=== PATIENT | male | born 1975 | race Hispanic/Latino ===

== ENCOUNTER 2018-01-27 10:14 | Outpatient (CLI) | payer BC ==
--- NOTE | 2018-01-27 14:02 | CT ---
CT OF PARANASAL SINUSES: DATE: 01/27/18. COMPARISON: None. HISTORY: Chronic right-sided ear infections, hearing loss of right, history of cholesteatoma and conductive he aring loss. TECHNIQUE: Serial axial CT imaging obtained at 3 mm intervals through the paranasal sinuses without contrast. C oronal reformatted imaging obtained. FINDINGS: There is polypoid mucosal thickening involving the alveolar recess of the maxillary sinus on the left . The frontal sinuses, sphenoid sinuses, ethmoid air cells, and right maxillary sinus are unremarkab le. The mastoid air cells on the left appear well aerated. The mastoid air cells on the right are h ypoplastic and opacified. There is soft tissue density in the tympanic cavity on the right as well. This is better assessed on dedicated CT of the temporal bones. These findings are consistent with t walter provided history of cholesteatoma. Outflow tract of bilateral maxillary sinuses demonstrates patency. There is a binu bullosa on the right. The outflow tract of bilateral frontal sinuses appears unremarkable. IMPRESSION: Opacified mastoid air cells and tympanic cavity on the right, consistent with the provided history of cholesteatoma, incompletely assessed on this exam. Please refer to CT of the temporal bones for ful l assessment. POS: [facility]
--- NOTE | 2018-01-27 14:50 | CT ---
CT IAC AND TEMPORAL BONES: HISTORY: Conductive hearing loss. Chronic right ear infection for the past 6 years. Occasional right ear hea ring loss. COMPARISON: None. TECHNIQUE: CT of the IAC and temporal bones was performed in the axial plane without contrast. Coronal reformat eligio images are submitted for interpretation. FINDINGS: Visualized brain parenchyma is unremarkable. Adequate aeration of the visualized paranasal sinuses w ith the exception of a small mucous retention cyst in the left maxillary sinus. RIGHT IAC/TEMPORAL BONES: The internal auditory canal, cochlea, vestibule, and semicircular canals have a normal appearance and configuration. Vestibular aqueduct is not enlarged. There is complete opacification of the epitymp sofy and mesotympanum. Hypoattenuation in the hypotympanum is not appreciated. There is abnormal hy poattenuation of Prussak's space and blunting of the scutum. Tegman tympani and the tegman mastoideu m appear to be preserved. There is coalescence and sclerosis of the right mastoid air cells. There is thickening and retraction of the right tympanic membrane. Mild mucosal fullness of the medial rig ht external auditory canal is identified. With regard to the ossicular chain, there does appear to b e erosion involving the stapes and possibly the incus. Normal-appearing ossicular chain is not appre ciated. LEFT IAC/TEMPORAL BONES: The internal auditory canal, cochlea, vestibule, and semicircular canals have an appropriate appearan ce and configuration. The vestibular aqueduct is not enlarged. Adequate aeration of the middle ear. Ossicular chain is intact. Stapedal footplate is appropriately located. Scutum is sharp. No abno rmal hypodensities in the Prussak's space. Adequate aeration of the mastoid air cells. Intraosseous septae of the mastoid air cells are preserved. Tegman tympani and tegman mastoideum is preserved. U nremarkable tympanic membrane and external auditory canal. IMPRESSION: Opacification of the right mastoid air cells and right middle ear suggesting a chronic process. POS: [facility]
== END 2018-01-27 10:15 | disposition home or self-care (01) ==
LOC: BICCT 10:14
PROVIDERS: ATTEND Otolaryngology Otology & Neurotology
DX: H90.2 Conductive hearing loss, unspecified (principal); H71.90 Unspecified cholesteatoma, unspecified ear; H74.8X1 Other specified disorders of right middle ear and mastoid
CPT/HCPCS: 70480

== ENCOUNTER 2018-04-18 06:41 | Day surgery (SDC) | payer BC ==
[2018-04-15 11:57] VITALS: BMI 40.7
[2018-04-18] MEDS ORDERED: EPINEPHrine 1 MG/ML AMP ONE (09:54)
[2018-04-18] MEDS ORDERED: Bupivacaine/Epinephrine 0.25% 30 ML VIAL ONE (09:54)
[2018-04-18] MEDS ORDERED: Lidocaine 1% w/Epinephrine 1:100K 30 ML VIAL ONE (09:54)
[2018-04-18] MEDS ORDERED: Bacitracin Zinc Ointment 30 gm TUBE ONE (09:54)
[2018-04-18] MEDS ORDERED: Sodium Chloride 0.9% 10 ML ONE (09:54)
[2018-04-18] MEDS ORDERED: Fentanyl 100 MCG/2 ML VIAL ONE (10:23)
[2018-04-18] MEDS ORDERED: Gelfilm 1 EA Packet ONE (11:34)
[2018-04-18] MEDS ORDERED: PHENYLEPHRINE-NS 100 MCG/ML 10 ML SYRINGE ONE (12:06)
[2018-04-18] MEDS ORDERED: Morphine 2 MG/ML SYRINGE ONE (14:02)
[2018-04-18] MEDS ORDERED: Promethazine HCl 25 MG/ML VIAL ONE (14:03)
[2018-04-18] MEDS ORDERED: HYDROcodone/Acetaminophen 5/325 mg Tablet ONE (15:15)
--- NOTE | 2018-04-19 01:21 | OP ---
DATE OF PROCEDURE: 04/18/2018 PREOPERATIVE DIAGNOSIS: Right-sided cholesteatoma. PROCEDURES PERFORMED: 1. Right tympanoplasty mastoidectomy without ossicular chain reconstruction. 2. Facial nerve decompression. 3. Skull defect repair less than 5 cm. 4. Microscopic surgical procedure. 5. Facial nerve monitoring for 2 hours. POSTOPERATIVE DIAGNOSIS: Right-sided cholesteatoma. ANESTHESIA: General. COMPLICATIONS: None. ESTIMATED BLOOD LOSS: 5 mL. SPECIMENS: None. SILK SCREENER: None. DISPOSITION: Stable to recovery room. SUMMARY: Right attic cholesteatoma involving the attic incus near complete erosion, stapes superstructure intact. Cholesteatoma involving middle ear attic and mastoid segment facial recess widely opened. Cholesteatoma had eroded the facial nerve in the vertical segment just after second genu and had eroded through the epineurium, decompressed 0.5 cm into the mesotympanum and 0.5 cm inferior by opening up the epitympanum for this area of cholesteatoma-induced injury. Staged with Silastic, cartilage placed over the perforation that involved all of the left superior quadrant. We used fascia, then cartilage, then silastic over an intact stapes bone, thus compressed and placed in attic. I do not seriously expect a recurrence, good excision, definitely we would like to look for reconstruction as well as surveillance of cholesteatoma. DESCRIPTION OF PROCEDURE: Right tympanoplasty mastoidectomy without ossicular chain reconstruction: After informed consent was obtained, the patient was taken to the operating room, placed in supine position. General endotracheal anesthetic was administered. Table was rotated 180 degrees. Right ear was injected postauricular and transcanal with 0.25% Marcaine with epinephrine. With the right ear draped and prepped in sterile fashion, microscope was brought into view and ear canal flap was elevated at 12 and 6 o'clock position posteriorly down to the annulus. Postauricular incision was made with a 10 blade and reflected the ear fold, pericranial flap elevated with Bovie based anteriorly, retractor was placed, cartilage harvested, debrided soft tissue off the cartilage using the 4 carlo. Temporalis fascia was harvested and placed on the back table to dry. With the retractors placed, basic cortical mastoid was performed using carlo cutting burrs, opened a facial recess, noted something was little abnormal because of dense soft tissue in this area stimulated with general palpation of an instrument or the drill bit, suspicious for facial nerve exposure. The cholesteatoma was excised, removed, and this was repaired as described above. Of note, the tensor tympani nerve was sectioned as well. Facial nerve decompression: With a basic mastoid performed and identified the inflammatory tissue around the facial nerve at the first genu, care was taken to dissect geri bone growth over the horizontal canal and around the posterior aspect of the facial nerve. The fallopian canal was then clearly identified in the mesotympanum and vertical to the area in question with inflammatory tissue, but at this point, it had not generally exposed the facial nerve, dissected out the inflammatory tissues as well as some cholesteatoma, and it had cavitated and created a convexity into the fallopian canal superiorly to the facial nerve and had dehisced and removed 3 mm length of the epineurium right at the genu. Because of this, facial nerve was further decompressed, exposing the fallopian canal, the mesotympanum as well vertically, and the mastoid, and then using an 11-blade, sectioned the epineurium 0.5 cm to 6 mm anterior to the defect and then inferiorly the same amount. Skull defect repair: With the reconstruction of the middle ear space and the attic performed as described above, bone dust which had been harvested and mixed with into a thick paste, it was compressed up against through the attic and into the canal, by Gelfoam to keep it from the middle ear space. This was performed to prevent a recurrence in the attic portion of the area of the primary cholesteatoma. Microscopic surgical procedure: Throughout the entirety of the operation, microscope was integral part of the procedure using 4 power to 14 high illumination. Facial nerve monitoring for 2 hours: Throughout the entirety of operation, the facial nerve monitoring was done at 100 mV response threshold and 0.8 stimulus through the EMG electrodes orbicularis oculi and orbicularis sarah, which had been attached just after induction. No unexpected stimulus was formed, and it was an integral part of the procedure considering the need to decompress the facial nerve. It was more than expected to have a response with drill movement in the area of the facial recess and noted in that area which suggested the possibility of dehisced facial nerve and turned out to be correct. The flaps were closed with deep 2-0 and 3-0 Monocryl. Gelfoam was placed in the latter part of the ear canal with bacitracin ointment and cotton ball. The patient tolerated this procedure well and was turned over to Anesthesia in stable condition. Job ID: [id number]
== END 2018-04-18 15:36 | disposition home or self-care (01) ==
LOC: SDC 06:41
PROVIDERS: ATTEND Otolaryngology Otology & Neurotology
PROC: 09U507Z Supplement Right Middle Ear with Autologous Tissue Substitute, Open Approach (ICD-10-PCS; principal; 2018-04-18)
PROC: 0NQ00ZZ Repair Skull, Open Approach (ICD-10-PCS; principal; 2018-04-18)
DX: H71.01 Cholesteatoma of attic, right ear (principal); H90.2 Conductive hearing loss, unspecified
CPT/HCPCS: 93005; 93010; 96374; 96375; J0131; J0171; J2001; J2270; J2550; J3010; J3490